=== PATIENT | male | born 1940 | race Caucasian/White ===

== ENCOUNTER 2019-10-20 21:38 | Inpatient (IN) | payer MEDICARE ==
[~2019-10-20] VITALS: Ht 180.3 cm; Wt 83.9 kg
[2019-10-20 22:20] LABS: Source, Urine Clean Catch
[2019-10-20 22:23] LABS: BASOPHILS ABSOLUTE AUTO 0.05 K/mm3 (0.00-0.23); BASOPHILS PERCENT AUTO 0 % (0-2); EOSINOPHILS ABSOLUTE AUTO 0.13 K/mm3 (0.00-0.68); EOSINOPHILS PERCENT AUTO 1 % (0-6); Hematocrit 47.4 % (37.0-53.0); Hemoglobin 15.8 g/dL (13.5-17.5); IMMATURE GRAN ABSOLUTE AUTO 0.08 K/mm3 (0.00-0.10); IMMATURE GRAN PERCENT AUTO 1 % (0-1); LYMPHOCYTES ABSOLUTE AUTO 1.18 K/mm3 (0.84-5.20); LYMPHOCYTES PERCENT AUTO 8 % (21-46); MONOCYTES ABSOLUTE AUTO 1.45 K/mm3 (0.16-1.47); MONOCYTES PERCENT AUTO 9 % (4-13); Mean Corpuscular HGB 33.5 pg (26.0-34.0); Mean Corpuscular HGB Conc 33.3 g/dL (31.5-36.5); Mean Corpuscular Volume 100 fL (80-100); Mean Platelet Volume 10.1 fL (9.1-12.4); NEUTROPHILS ABSOLUTE AUTO 12.61 K/mm3 (1.96-9.15); NEUTROPHILS PERCENT AUTO 81 % (41-73); Platelet Count 193 K/mm3 (150-400); RDW Coefficient Variation 13.2 % (11.7-14.2); RDW Standard Deviation 48.7 fL (35.1-46.3); Red Blood Cell Count 4.72 M/mm3 (4.30-5.90)
[2019-10-20 22:29] LABS: Bilirubin, Urine Neg (Neg); Blood, Urine 4+ (Neg); Glucose Qualitative, Urine Neg (Neg); Ketones, Urine 2+ (Neg); Leukocyte Esterase, Urine 1+ (Neg); Nitrite, Urine Neg (Neg); Protein, Urine 1+ (Neg); Urobilinogen, Urine 2+ (Normal); pH, Urine 6.5 (5.0-8.0)
[2019-10-20 22:38] LABS: Alanine Aminotransfer (ALT/SGP 17 U/L (12-78); Albumin, Blood 2.9 g/dL (3.4-5.0); Albumin/Globulin Ratio 0.7 (0.8-1.8); Alk Phos 109 U/L (50-136); Anion Gap 6 mmol/L (6-16); Aspartate Aminotrans (AST/SGOT 14 U/L (12-37); Bilirubin, Total 0.5 mg/dL (0.1-1.0); Blood Urea Nitrogen 18 mg/dL (8-24); Bun/Creatinine Ratio 20.3 (12.0-20.0); CO2, Blood 29 mmol/L (21-32); Calcium, Blood 8.6 mg/dL (8.5-10.1); Chloride, Blood 107 mmol/L (98-108); Creatinine, Blood 0.89 mg/dL (0.60-1.20); Globulin, Blood 3.9 g/dL (2.2-4.0); Glomerular Filtration Rate >60 (60-); Glucose, Blood 106 mg/dL (70-99); Potassium, Blood 3.9 mmol/L (3.5-5.5); Sodium, Blood 142 mmol/L (136-145); Total Protein, Blood 6.8 g/dL (6.4-8.2); Troponin I <0.015 ng/mL (0.000-0.040)
[2019-10-20 22:53] LABS: Magnesium, Blood 1.8 mg/dL (1.6-2.4)
[2019-10-20 23:19] LABS: Appearance, Urine Clear (Clear); Color, Urine Yellow (P-Yellow)
[2019-10-20 23:20] LABS: Bacteria Rare /hpf; Mucus Light (0-Heavy); Red Blood Cells, Urine 50-100 /hpf (0-2); Squamous Epithelial Cells Rare /hpf (Few)
[2019-10-20 23:59] LABS: Influenza A Negative (NEGATIVE); Influenza B Negative (NEGATIVE)
[2019-10-21 01:38] LABS: Adenovirus Not Detected (NOT DETECT); Bordetella pertussis Not Detected (NOT DETECT); Chlamydophila pneumoniae Not Detected (NOT DETECT); Coronavirus 229E Not Detected (NOT DETECT); Coronavirus HKU1 Not Detected (NOT DETECT); Coronavirus NL63 Not Detected (NOT DETECT); Coronavirus OC43 Not Detected (NOT DETECT); Human Metapneumovirus Not Detected (NOT DETECT); Human Rhinovirus/Enterovirus Not Detected (NOT DETECT); Influenza A/2009-H1 Not Detected (NOT DETECT); Influenza A/H1 Not Detected (NOT DETECT); Influenza A/H3 Not Detected (NOT DETECT); Influenza B Not Detected (NOT DETECT); Mycoplasma pneumoniae Not Detected (NOT DETECT); Parainfluenza Virus 1 Not Detected (NOT DETECT); Parainfluenza Virus 2 Not Detected (NOT DETECT); Parainfluenza Virus 3 Not Detected (NOT DETECT); Parainfluenza Virus 4 Not Detected (NOT DETECT); Respiratory Syncytial Virus Not Detected (NOT DETECT)
--- NOTE | 2019-10-21 08:17 | NUR ---
SUMMARY PT ARRIVED TO FLOOR IN NO DISTRESS. PT HAD NO SOB NOTED. PT IS AOX3 IS CONFUSED TO YEAR AND WHO THE PRESIDENT IS. PT IS ON 2LPM NC. PT DID HAVE A COMPLAINT OF LOW BACK PAIN THAT IMPROVED WITH REPOSITIONING OF BED. REPORT GIVEN TO DAY RN.
--- NOTE | 2019-10-21 15:42 | NUR ---
ADVISED ATTEMPTING TO GET LIST OF MEDS FROM AND WILL LET HIM KNOW WHEN I GET THEM IN. IS CURRENTLY AT [facility] AND WOULD LIKE CALL BACK LATER. JOSE [phone]
--- NOTE | 2019-10-21 16:50 | NUR ---
COMES IN AND SAYS SHE WILL CALL BACK WITH MEDS
--- NOTE | 2019-10-21 17:12 | NUR ---
ALERT AT BEGINNING OF SHIFT AND END TO ; SELF, FAMILY AND IS ABLE TO SAY IN HOSPITAL IN [facility]. COULD NOT TELL ME HIS WIFES NAME OF JUAN JOSÉ, BUT SAID "YOLA". COULD NOT TELL ME THAT WAS A NICKNAME, BUT DIL SAID IT WAS. HX RECENT STROKE W/LEFT SIDED DEFICIT. BILATERAL HAND TREMORS. N/T TO BILATERAL FEET. PLACED ON OXYGEN AT ONE LPM VIA N/C FOR SATS 92-93% WAS AT 90% ON R.A. HAS YEAST TYPE AREA TO ABD FOLD RT SIDE W/NYSTATIN POWDER ORDERED. PATIENT IS VERY SLOW TO RESPOND. UNLABORED RESPIRATIONS. DENIES ANY PAIN OR DISCOMFORT. IS ABLE TO USE CALL LIGHT WHICH IS REVIEWED EVERY TIME IN ROOM AND PLACED ON PATIENT CHEST. TM
[2019-10-21] MEDS ORDERED: CARV3.125 PO (17:26)
[2019-10-21] MEDS ORDERED: CLOP75 PO (17:26)
[2019-10-21] MEDS ORDERED: SULF500 PO (17:28)
--- NOTE | 2019-10-21 17:29 | NUR ---
LEFT MESSAGE ON VOICE MAIL MEDS HAVE BEEN RECONCILLED
--- NOTE | 2019-10-22 07:27 | NUR ---
10/22/19 0620 Awakened pt to repositIon and change incontinence brief. Denies any pain. TWO PERSON ASSIST WITH CARE PATIENT DOES NOT HELP WITH CARE. VITALS STABLE. DROPLET ISOLATION MAINTAINED. SKIN CARE GIVEN WITH BRIEF CHANGES--SEE MAR FOR POWDER USED.
[2019-10-22 09:18] LABS: BASOPHILS ABSOLUTE AUTO 0.03 K/mm3 (0.00-0.23); BASOPHILS PERCENT AUTO 0 % (0-2); EOSINOPHILS PERCENT AUTO 1 % (0-6); Hematocrit 46.1 % (37.0-53.0); Hemoglobin 15.1 g/dL (13.5-17.5); IMMATURE GRAN ABSOLUTE AUTO 0.08 K/mm3 (0.00-0.10); IMMATURE GRAN PERCENT AUTO 1 % (0-1); LYMPHOCYTES ABSOLUTE AUTO 0.93 K/mm3 (0.84-5.20); LYMPHOCYTES PERCENT AUTO 7 % (21-46); MONOCYTES ABSOLUTE AUTO 0.82 K/mm3 (0.16-1.47); MONOCYTES PERCENT AUTO 6 % (4-13); Mean Corpuscular HGB 32.8 pg (26.0-34.0); Mean Corpuscular HGB Conc 32.8 g/dL (31.5-36.5); Mean Corpuscular Volume 100 fL (80-100); Mean Platelet Volume 9.9 fL (9.1-12.4); NEUTROPHILS ABSOLUTE AUTO 12.29 K/mm3 (1.96-9.15); NEUTROPHILS PERCENT AUTO 86 % (41-73); Platelet Count 176 K/mm3 (150-400); RDW Standard Deviation 47.8 fL (35.1-46.3); White Blood Cell Count 14.25 K/mm3 (4.00-11.30)
[2019-10-22 09:38] LABS: Anion Gap 2 mmol/L (6-16); Blood Urea Nitrogen 13 mg/dL (8-24); Bun/Creatinine Ratio 20.5 (12.0-20.0); CO2, Blood 32 mmol/L (21-32); Calcium, Blood 8.6 mg/dL (8.5-10.1); Chloride, Blood 108 mmol/L (98-108); Creatinine, Blood 0.63 mg/dL (0.60-1.20); Glomerular Filtration Rate >60 (60-); Glucose, Blood 124 mg/dL (70-99); Potassium, Blood 4.1 mmol/L (3.5-5.5); Sodium, Blood 142 mmol/L (136-145)
--- NOTE | 2019-10-22 17:51 | NUR ---
NO ACUTE CHANGES NOTED. PATIENT REMAINS CONFUSED AND SLOW TO RESPOND WHEN TALKING TO HIM. PATIENT DOESN'T COMPLAINT OF ANY SHORTNESS OF BREATH BUT AGAIN DOESN'T VERBALIZE WELL. PATIEN O2 SATS ARE IN THE MID 90'S ON 2 LITERS OXYGEN. PATIENT IS INCONTENENT OF BOTH BOWEL AND BLADDER AT THIS TIME WHICH HIS STATES IS NOT HIS NORMAL. HE IS USUALLY ALERT AND INDEPENDENTLY AMBULATORY AT HOME. ORAL AND NASAL SAMPLES SENT OUT FOR TESTING TO RULE OUT COVID-19. NO OTHER ISSUES NOTED AT THIS TIME. WILL CONTINUE TO MONITOR FOR CHANGES.
[2019-10-22 19:18] LABS: Test Name COVID-19
--- NOTE | 2019-10-22 20:00 | NUR ---
2000-ERICK HAS A VERY FLAT EFFECT AND WITHDRAWN FROM STAFF. HE ANSWERS TO HIS NAME BUT WOULD ONLY A FEW OF THE QUESTIONS ASKED. AND WHEN HE DOES IT IS ONLY BY ONE WORD. HE DOES NOT FOLLOW DIRECTIONS ALL THE TIME ONLY WHEN IT SEEMS I GOT HIS ATTENTION. DURING MY WHOLE ASSESSMENT AND ATTENDS CHANGE IS APPEARED VERY UNRESPONSIVE, BUT WAS AWAKE AND STARING AT THE TV. WHEN I DID GET HIM TO MDM SR THEY WERE BARLY A SQEEZE LIKE HE DID NOT WANT TO DO IT. RIGHT WAS STRONGER THEN LEFT. HIS SMILE WAS NORMAL. DORSAL FLEXION AND EXTENTION WERE SAME THE HAND. EVEN THE RECEIVING CLERK COULD NOT GET HIM TO RESPOND. LUNG SOUNDS DIMINISHED WITH MOIST COUGH. NO SPUTUM NOTED. DID NOT EAT MUCH OF HIS MEAL. WHEN ASKED HE DID NOT RESPOND. WILL CONTINUE TO MONITOR AND CHECK CHART TO SEE HIS THIS IS HIS NORM.
--- NOTE | 2019-10-22 21:52 | NUR ---
2151- STOPPED BY, STATES SHE WAS WORRIED HE DID NOT SEEM HIMSELF TODAY. SHE REPORTS THAT HE IS NORMALLY MORE TALKATIVE AND HE BARELY RESPONDED TO HER. IT WORRIED HER ENOUGH THAT SHE CAME BACK IN TO SEE HIM. WHEN SHE CAME OUT OF THE ROOM, SHE SAID HE REPONDED TO HER BETTER. SHE THINKS HE IS SCARED SOMEONE MENTIONED ABOUT THE CORNAVIRUS TO HIM. SHE THINKS HIM NOT RESPONDING IS RELATED TO THAT. SHE SAID WHEN SHE MENTIONED IT TO HIM HE APPEARED LIKE HE WAS GOING TO START TO CRY. TOLD HER WILL WATCH HIM ALL THE VITALS ARE GOOD, IF THERE IS CHANGES WE WILL LET HER KNOW.
--- NOTE | 2019-10-23 05:25 | NUR ---
SHIFT SUMMARY: ERICK HAS BEEN VERY WITHDRAWN AND FLAT EFFECT. HIS RESPONSES ARE LIMITED WITH ALOT OF EFFORT FROM STAFF. HE DOES NOT FOLLOW DIRECTION ALL THE TIME. HE JUST STARES OFF AT THE TV, BUT KNOWS WE ARE TALKING TO HIM. HE APPEARS SCARED AND DOWN WITH WHAT IS GOING ON WITH HIM. THINKS THIS WELL. VS HAVE ALL BEEN STABLE. NEURO CHECKS APPEAR TO BE WITH IN HIS NORM EXCEPT OF HIS RESPONSES. HIS APPETITE IS POOR, DID NOT EAT MUCH OF ANYTHING FOR DINNER. DID GET HIM TO TAKE IN APPLESAUCE. BUT DID NOT WANT ANYTHING TO DRINK. HE CONTINUES TO BE INCONTIENT WITH LARGE AMOUNTS OF OUTPUT. LUNG SOUNDS ARE DIMINISHED WITH THE LIMITED AIR MOVMENT FROM HIM NOT TAKING A DEEP BREATH. COUGH IS MOIST BUT NON-PRODUCTIVE. HE MOSTLY LAID IN BED STARING AT THE TV NOT SPEAKING, UNTIL HE FELL ASLEEP. ATTENDS CHANGED PRN. IV REMAINED PATENT. NO OTHER CHANGES TO REPORT THIS SHIFT.
[2019-10-23 07:17] LABS: BASOPHILS ABSOLUTE AUTO 0.04 K/mm3 (0.00-0.23); BASOPHILS PERCENT AUTO 0 % (0-2); EOSINOPHILS ABSOLUTE AUTO 0.15 K/mm3 (0.00-0.68); EOSINOPHILS PERCENT AUTO 1 % (0-6); Hematocrit 46.3 % (37.0-53.0); Hemoglobin 15.1 g/dL (13.5-17.5); IMMATURE GRAN ABSOLUTE AUTO 0.09 K/mm3 (0.00-0.10); IMMATURE GRAN PERCENT AUTO 1 % (0-1); LYMPHOCYTES ABSOLUTE AUTO 0.97 K/mm3 (0.84-5.20); LYMPHOCYTES PERCENT AUTO 7 % (21-46); MONOCYTES ABSOLUTE AUTO 1.19 K/mm3 (0.16-1.47); MONOCYTES PERCENT AUTO 9 % (4-13); Mean Corpuscular HGB 32.4 pg (26.0-34.0); Mean Corpuscular HGB Conc 32.6 g/dL (31.5-36.5); Mean Corpuscular Volume 99 fL (80-100); Mean Platelet Volume 9.9 fL (9.1-12.4); NEUTROPHILS ABSOLUTE AUTO 10.61 K/mm3 (1.96-9.15); NEUTROPHILS PERCENT AUTO 81 % (41-73); Platelet Count 185 K/mm3 (150-400); RDW Standard Deviation 47.8 fL (35.1-46.3); Red Blood Cell Count 4.66 M/mm3 (4.30-5.90); White Blood Cell Count 13.05 K/mm3 (4.00-11.30)
[2019-10-23 07:38] LABS: Anion Gap 6 mmol/L (6-16); Blood Urea Nitrogen 14 mg/dL (8-24); Bun/Creatinine Ratio 21.5 (12.0-20.0); CO2, Blood 30 mmol/L (21-32); Calcium, Blood 8.6 mg/dL (8.5-10.1); Chloride, Blood 104 mmol/L (98-108); Creatinine, Blood 0.65 mg/dL (0.60-1.20); Glomerular Filtration Rate >60 (60-); Glucose, Blood 88 mg/dL (70-99); Potassium, Blood 3.7 mmol/L (3.5-5.5); Sodium, Blood 140 mmol/L (136-145)
[2019-10-23] MEDS ORDERED: ACET325 PO (09:47)
[2019-10-23] MEDS ORDERED: Pedi-Dri 100,0060 GM TOP (09:48)
[2019-10-23] MEDS ORDERED: AZIT500 PO (09:48)
[2019-10-23] MEDS ORDERED: CEFP200 PO (09:48)
[2019-10-23] MEDS ORDERED: ONDA4ODT MM (09:48)
[2019-10-23] MEDS ORDERED: Florastor250 MG PO (09:49)
--- NOTE | 2019-10-23 10:42 | NUR ---
Pt slow and fatigued and minimally responsive. respirations elevated and deep. pt fights when we try to open eyes. at bedisdie pt slow to repond to stimulus. Physician at bedside. is concerned that he is declining. she was soncerned that if he was passing his pacemanker would keep his heart beating. review of pacemaker and hospice if the time comes. pt was supposed to see doctor lisa yesterday. She is going to speak with him about a plan of care. Goal is to get him home with home health. gave our number will help with plan of care. displaying home care specialist stress. theraputic time with her.
--- NOTE | 2019-10-23 10:45 | NUR ---
SPOKE WITH DR JEWELL AND PALLIATIVE CARE RN MEENU REGARDING PT STATUS THIS AM. PT NOT FOLLOWING DIRECTION FOR ME AND WOULD OPEN EYES FOR A SHORT PERIOD OF TIME WHEN SPOKE TO BUT WOULD NOT VERBALLY RESPOND. UNABLE TO ASSESS FULL NEUROS DO TO NOT FOLLOWING COMMAND BUT DID NOT PT USE ARMS TO GRAB WHEN BEING REPOSITIONED. WHEN ATTEMPTING TO GIVE MEDICATION VIA APPLE SAUCE WITH WOULD NOT SWALLOW AND SAT WITH THE PILL IN HIS MOUTH AND REQUIRED SUCTIONING TO REMOVE. PER PT IS ABLE TO AMBULATE AND BASELINE. SPOUSE REPORTS PT DID NOT EAT YESTERDAY WELL. PER DR JEWELL START ON LR AT 75ML/HR, CHANGE AZITHROMYCIN TO IV DUE TO NOT TAKING THIS AM. HEAD CT WITHOUT CONTRAST ORDERED WELL. SPOUSE REPORTS SHE FEELS THOUGH PT MAY BE DOING THIS ON PURPOSE. WILL CONT TO MONITOR.
--- NOTE | 2019-10-23 17:00 | NUR ---
PT TO IMAGING FOR HEAD CT.
--- NOTE | 2019-10-23 17:26 | NUR ---
SHIFT SUMMARY- PT HAS BEEN NONVERBAL AND NONRESPONSIVE MOST OF THE SHIFT. PT DOES OPEN EYES AT TIMES AND APPEARS TO RESPOND BETTER TO MALE VOICES. PT WITH GENERALIZED WEAKNESS AND DECONDITIONING, SOME STIFFNESS NOTED WELL. TREMORS NOTED, SPOUSE REPORTS THESE ARE CHRONIC. PT DOES NOT FOLLOW DIRECTIONS MOST OF THE TIME AND WOULD NOT SWALLOW MEDICATIONS THIS AM REQUIRING THEM TO BE SUCTIONED OUT. HEAD CT COMPLETED. LS DIMINISHED WITH SOME COARSENESS NOTED, ON 2L N/C. MOIST NPC, SUCTION AT BEDSIDE. HRR. INCONT OF URINE. PT STARTED ON IVF. 1+ BLE EDEMA PRESENT. PT CONT TO NOT EAT OR DRINK THIS SHIFT. NO OTHER ACUTE CHANGES THIS SHIFT.
--- NOTE | 2019-10-23 17:42 | NUR ---
PT SPOUSE IN TO SEE PT THIS EVENING. UPDATE GIVEN. PER SPOUSE SHE BELIEVES THAT PT IS SCARED DUE TO BEING TEST FOR CORNOVIRUS. SHE REPORTS SINCE THEY NOTIFIED HIM OF THIS HE HAS SHUT DOWN. SHE ALSO REPORTS THE LAST TIME PT DID THIS HE WENT BACK TO HIS SELF ONCE SHE GOT PT HOME.
--- NOTE | 2019-10-23 20:00 | NUR ---
2000-ASSUMED CARE OF ERICK. ERICK IS NON-RESPONSIVE TO STAFF. HE WILL SLIGHTLY OPEN HIS EYES, BUT WILL NOT RESPOND TO QUESTIONS OR DIRECTIONS. HE IS NON-VERBAL. HE WOULD NOT EVEN MOVE WHEN ASKED. BUT WHEN WE GO TO TURN HIM HE WILL GRAB THE SIDE BAR AND HOLD HIMSELF UP, THEN HE WILL OPEN HIS EYES UP TILL I LOOK AT HIM AND HE CLOSES THEM. CHANGED ATTENDS, PROVIDED PERICARE AND SKIN CARE. LUNG SOUNDS COURSE AND DIMINISHED. COUGH IS STILL MOIST. WILL CONTINUE TO MONITOR.
--- NOTE | 2019-10-24 04:38 | NUR ---
SHIFT SUMMARY: ERICK HAS REMAINED NON-RESPONSIVE MOST OF SHIFT. DISTANCE EDUCATION COORDINATOR DID GET SOME RESPONSE FROM HIM ONCE WHEN CHANGING HIS ATTENDS. HE ASSISTED HER WITH TURNING AND EVEN SAID O-BOY, OPENING HIS EYES. BUT IT APPEARS WHEN WE TRY TO GET HIM TO TALK MORE, HE GOES IMMEDIATLY BACK TO NOT RESPONDING LIKE HE JUST GOT CAUGHT. HAS MENTIONED THAT HE HAS DONE THIS PREVIOUS HOSPITALIZATION, AND WHEN HE DISCHARGES HE IS HIS NORMAL SELF. HE CONTINUES TO BE INCONTINET WITH FREQUENT CHANGES. REPOSITION EVERY 2 HOURS. NO CHANGE IN LUNG SOUNDS OR COUGH. STILL NOT TAKING ANYTHING BY MOUTH FOR US. IV FLUIDS CONTINUE TO INFUSE WITH NO PROBLEM. VS WNL. NO WORD ON RESULTS OF COVID-19 TEST. CONTINUED ISOLATION DROPLET AT THIS TIME. NO OTHER CHANGES TO REPORT.
--- NOTE | 2019-10-24 17:20 | NUR ---
PT CONTINUES TO NOT EAT OR DRINK BUT A SIP AT TIMES. PT IS RESPONDING SLIGHTLY BETTER AND IS ASSISTING WITH REPOSITIONING IN BED AT TIMES AND SAT UP WITH THERAPY AT EDGE OF BED. PT CONT TO TO NOT SPEAK MUCH PT WITH ANSWER YES/NO AT TIMES OR SHAKE HIS HEAD. SPOKE WITH YESTERDAY AND TODAY REGARDING PT CONDITION AND DECONDITIONING. SPOUSE WAS ORIGINALLY CONCERNED ABOUT TAKING PT HOME AND THEN CHANEGD HER MIND AND REPORTED SHE WOULD TAKE PT HOME SHE BELIEVES HE WILL IMPROVE ONCE HOME. PER CASE MANAGEMENT A HOSPITAL BED WAS BEING DELIVERED TO HOUSE AND GURNEY TRANSPORT ARRANGED. GAIT BELT SENT HOME WITH PT. REPORT CALLED TO SPOUSE EARLIER AND PACKET SENT HOME WITH PT. RX FAXED TO PHARMACY. IV X2 DC'D. AWAITING GURNEY TRANSPORT HOME AT THIS TIME.
--- NOTE | 2019-10-24 18:03 | NUR ---
PT DISCHARGED VIA [facility] AT 1800. ATTEMPTED TO CALL SPOUSE X2 TO LET KNOW THAT PT IS ON HIS WAY BUT WENT STRAIGHT TO VOICEMAIL, MESSAGE LEFT.
== END 2019-10-24 18:02 | disposition home health service (06) | DRG 193 ==
LOC: ER 21:38 → MEDS 21:39
PROVIDERS: Emergency Medicine; Family Medicine; Nurse Practitioner Acute Care; ADMIT Internal Medicine
DX: J18.9 Pneumonia, unspecified organism (principal); J96.01 Acute respiratory failure with hypoxia; K51.90 Ulcerative colitis, unspecified, without complications; I25.10 Atherosclerotic heart disease of native coronary artery without angina pectoris; R41.82 Altered mental status, unspecified; Z66 Do not resuscitate; Z95.0 Presence of cardiac pacemaker; Z95.820 Peripheral vascular angioplasty status with implants and grafts; Z95.1 Presence of aortocoronary bypass graft; Z87.891 Personal history of nicotine dependence; Z88.0 Allergy status to penicillin; Z79.899 Other long term (current) drug therapy; Z79.02 Long term (current) use of antithrombotics/antiplatelets
CPT/HCPCS: 0099U; 36415; 51701; 70450; 71045; 71250; 80048; 80053; 81001; 82947; 83605; 83690; 83735; 83880; 84145; 84443; 84484; 85025; 87040; 87086; 87804; 93005; 93010; 94761; 96361; 96365; 96366; 96367; 96372; 96375; 97112; 97162; 97530; 99285-25; A9270; A9270-GY; G0378; J0456; J0696; J1650; J7030; J7050; J7120; U0001

== ENCOUNTER 2019-10-25 21:40 | Inpatient (IN) | payer MEDICARE ==
[~2019-10-25] VITALS: Ht 182.9 cm; Wt 86.5 kg
[~2019-10-25 21:40] MED LIST: ACET325 PO; AZIT500 PO; CARV3.125 PO; CEFP200 PO; CLOP75 PO; Florastor250 MG PO; ONDA4ODT MM; Pedi-Dri 100,0060 GM TOP; SULF500 PO
[2019-10-25 22:05] LABS: Base Excess Venous 9.3 mmol/L; Bicarbonate Venous 29.3 mmol/L (24.0-30.0); PO2 Venous 27.6 mmHg (38-42)
[2019-10-25 22:07] LABS: BASOPHILS ABSOLUTE AUTO 0.05 K/mm3 (0.00-0.23); BASOPHILS PERCENT AUTO 0 % (0-2); EOSINOPHILS PERCENT AUTO 3 % (0-6); Hematocrit 48.7 % (37.0-53.0); Hemoglobin 16.2 g/dL (13.5-17.5); IMMATURE GRAN ABSOLUTE AUTO 0.07 K/mm3 (0.00-0.10); IMMATURE GRAN PERCENT AUTO 1 % (0-1); LYMPHOCYTES ABSOLUTE AUTO 1.32 K/mm3 (0.84-5.20); LYMPHOCYTES PERCENT AUTO 12 % (21-46); MONOCYTES PERCENT AUTO 10 % (4-13); Mean Corpuscular HGB 32.7 pg (26.0-34.0); Mean Corpuscular HGB Conc 33.3 g/dL (31.5-36.5); Mean Corpuscular Volume 98 fL (80-100); Mean Platelet Volume 9.6 fL (9.1-12.4); NEUTROPHILS ABSOLUTE AUTO 8.37 K/mm3 (1.96-9.15); NEUTROPHILS PERCENT AUTO 75 % (41-73); Platelet Count 235 K/mm3 (150-400); RDW Coefficient Variation 12.6 % (11.7-14.2); Red Blood Cell Count 4.95 M/mm3 (4.30-5.90); White Blood Cell Count 11.21 K/mm3 (4.00-11.30)
[2019-10-25 22:26] LABS: Alanine Aminotransfer (ALT/SGP 14 U/L (12-78); Albumin, Blood 2.6 g/dL (3.4-5.0); Albumin/Globulin Ratio 0.6 (0.8-1.8); Alk Phos 90 U/L (50-136); Anion Gap 5 mmol/L (6-16); Aspartate Aminotrans (AST/SGOT 14 U/L (12-37); Bilirubin, Total 0.6 mg/dL (0.1-1.0); Blood Urea Nitrogen 16 mg/dL (8-24); Bun/Creatinine Ratio 28.1 (12.0-20.0); CO2, Blood 32 mmol/L (21-32); Calcium, Blood 8.9 mg/dL (8.5-10.1); Chloride, Blood 105 mmol/L (98-108); Creatinine, Blood 0.57 mg/dL (0.60-1.20); Globulin, Blood 4.2 g/dL (2.2-4.0); Glomerular Filtration Rate >60 (60-); Glucose, Blood 103 mg/dL (70-99); Potassium, Blood 4.3 mmol/L (3.5-5.5); Sodium, Blood 142 mmol/L (136-145); Total Protein, Blood 6.8 g/dL (6.4-8.2); Troponin I <0.015 ng/mL (0.000-0.040)
[2019-10-26 00:28] LABS: PO2 Arterial 81.2 mmHg (80-100); pH Blood Arterial 7.43 (7.35-7.45)
[2019-10-26 03:02] LABS: Alanine Aminotransfer (ALT/SGP 12 U/L (12-78); Albumin, Blood 2.5 g/dL (3.4-5.0); Albumin/Globulin Ratio 0.6 (0.8-1.8); Alk Phos 84 U/L (50-136); Anion Gap 3 mmol/L (6-16); Aspartate Aminotrans (AST/SGOT 11 U/L (12-37); Bilirubin, Total 0.4 mg/dL (0.1-1.0); Blood Urea Nitrogen 17 mg/dL (8-24); Bun/Creatinine Ratio 31.6 (12.0-20.0); CO2, Blood 32 mmol/L (21-32); Calcium, Blood 8.6 mg/dL (8.5-10.1); Chloride, Blood 107 mmol/L (98-108); Creatinine, Blood 0.54 mg/dL (0.60-1.20); Globulin, Blood 3.9 g/dL (2.2-4.0); Glomerular Filtration Rate >60 (60-); Glucose, Blood 99 mg/dL (70-99); Sodium, Blood 142 mmol/L (136-145); Total Protein, Blood 6.4 g/dL (6.4-8.2)
--- NOTE | 2019-10-26 05:27 | NUR ---
PCU ADMIT / SHIFT SUMMARY PT BROUGHT TO PCU RM 02 FROM ER BY JO @ APPROX 0200 W/OUT FAMILY ACCOMPANYING. PT ALERT, EYES OPEN WIDE BUT PT NOT VERBALLY COMMUNICATING. PT NODDED HEAD YES TO CONFIRM PT's NAME. PT GAZING BLANKLY AHEAD WHEN ASKING OTHER ORIENTATION Q's THERE AFTER. PT SHOOK HEAD NO WHEN ASKED IF HAVING ANY PAIN. UNABLE TO OBTAIN FURTHER INFORMATION OR HX FROM PT. BILAT ARM TREMOR NOTED. MONITOR SHOWS NSR W/ OCCASSIONAL PACING. HR 60's-70's. VSS. LUNG SOUNDS DIM T/O. SPO2 > 92% ON 2L NC. HOME O2 USE UNKNOWN. PT NPO W/ INTENT FOR ST EVAL PER MD NOTE. UNABLE TO OBTAIN UA & TOX SCREEN D/T PT INCONTINENT, WEARING ATTENDS. NS GTT INFUSING PER ORDERS. PT IN BED W/ CALL LIGHT IN REACH. BED ALARM ON. WILL CONTINUE TO MONITOR AND PROVIDE CARE UNTIL REPORT OFF TO DAY SHIFT RN.
[2019-10-26 12:58] LABS: Bilirubin, Urine Neg (Neg); Blood, Urine 3+ (Neg); Glucose Qualitative, Urine Neg (Neg); Ketones, Urine 4+ (Neg); Leukocyte Esterase, Urine Neg (Neg); Nitrite, Urine Neg (Neg); Protein, Urine Neg (Neg); Specific Gravity, Urine 1.015 (1.003-1.022); Urobilinogen, Urine NORM (Normal)
[2019-10-26 13:29] LABS: Appearance, Urine Clear (Clear); Color, Urine Yellow (P-Yellow)
[2019-10-26 13:30] LABS: Bacteria Not Seen /hpf; Squamous Epithelial Cells Not Seen /hpf (Few); White Blood Cells, Urine 0-2 /hpf (0-5)
[2019-10-26 13:37] LABS: U Amphetamine Screen Not Detected; U Barbituate Screen Not Detected; U Benzodiazapine Screen Not Detected; U Buprenorphine Screen Not Detected; U Cannabinoids Screen Not Detected; U Cocaine Screen Not Detected; U Methadone Screen Not Detected; U Methamphetamine Screen Not Detected; U Opiates Screen Not Detected; U Oxycodone Screen Not Detected; U Phencyclidine Screen Not Detected; U Propoxyphene Screen Not Detected
--- NOTE | 2019-10-26 14:03 | NUR ---
Spiritual care visit conducted. Patient is resting and daughter Phyllis is bedside. Phyllis tells me about the patient's medical history, about their family and what the plan is going forward. Phyllis explains the spiritual journey of the patient and the family. Phyllis tells me that she is doing well but she is concerned about her mother in that she is overwhelmed by all the details involved in trying to place the patient and hurting over the what is happening to the patient. I listen empathically and provide a calming presence and prayer. Patient opens his eyes for the prayer and Phyllis voices appreciation. I will continue to remain available to patient and family.
--- NOTE | 2019-10-26 19:15 | NUR ---
SHIFT SUMMARY PT REMAINED LETHARIC THROUGHOUT MOST OF THE SHIFT; DID OPEN EYES TO VERBAL STIMULI & TOUCH AT TIMES; UNABLE TO ASSESS ORIENTATION STATUS; PT NOT VERBALLY RESPONSIVE TO QUESTIONS. FAMILY MADE DECISION TO TRANSITION PT TO COMFORT CARE AT THIS TIME. A #16F MEZA CATHETER WAS INSERTED FOR COMFORT. PT CURRENTLY RESTING IN BED IN NO DISTRESS. PT'S DAUGHTER IS AT BEDSIDE. PLAN FOR PT TO BE MOVED TO MEDICAL FLOOR WHEN BED BECOMES AVAILABLE. REPORT GIVEN TO ONCOMING RN.
--- NOTE | 2019-10-26 21:49 | NUR ---
1900: RECEIVED REPORT FROM DAY SHIFT RN. PT LETHARGIC, SPORADICALLY OPENS EYES, NONVERBAL, DOES NOT ANSWER QUESTIONS. DAUGHTER, ELIANE, AT BEDSIDE. HRR, LUNG SOUNDS DIMINISHED AT BASES. MOIST SHALLOW COUGH NOTED. ABDOMEN ROUND, SOFT, NONTENDER, BOWEL TONES NOTED X 4QUADRANTS. SKIN IS PALE. IV SITE W/O RST. BED IN LOW POSITION, CALL DOMINGUEZ WITHIN REACH.
--- NOTE | 2019-10-26 22:39 | NUR ---
REPORT GIVEN TO CAITLYN READ ON MEDICAL UNIT. FAMILY AWARE OF PT BEING TRANSFERRED TO ROOM 354, MEDICAL FLOOR.
--- NOTE | 2019-10-26 23:05 | NUR ---
TRANSFER NOTE: 2250: REPORT GIVEN TO CAITLYN READ, MEDICAL FLOOR, PT'S FAMILY IN ATTENDANCE, PT MEDICATED WITH ROXANOL FOR BACK DISCOMFORT WITH TURNING, PT IS ON COMFORT CARE. MEZA CATHETER DRAININ DARK ADAMA TO PINK URINE. PT TRANSFERRED VIA HOSPITAL BED, BY RN AND CADDY MASTER, WITH FAMILY IN ATTENDENCE.
--- NOTE | 2019-10-27 04:29 | NUR ---
T/F AND SUMMARY: REPORT RECIEVED FROM VAHE BORING MACHINE SET UP OPERATOR JIG AT 2235 AND PT T/F VIA BED TO ROOM 354 AT 2258 W/FAMILY AT BEDSIDE. HE IS ON COMFORT CARE AND HAS BEEN W/O ANY APPARENT S/S DISTRESS. PT WAS PRIMARILY NONRESPONSIVE BUT OPENED EYES BRIEFLY AT TIMES TO VOICE AND IS NONVERBAL W/INABILTY TO SPECIFY NEEDS. MEZA IS PATENT/DRAINING DARK TEA COLORED URINE. GRADUAL REPOSITIONING ATTENDED TO W/PILLOWS PROVIDED FOR SBD PREVENTION. HEEL PROTECTORS APPLIED AND LEGS FLOATED. PARKINSONIAN TREMOR OBSERVED, WORSE FROM BASELINE. SCOPALAMINE PATCH IN PLACE AND IS MANAGING ORAL SECRETIONS. NO PRN MEDS REQUIRED THIS SHIFT. COMFORT CARE CART AND RECLINER PROVIDED TO FAMILY STAYING AT BEDSIDE. NO ACUTE CHANGES. WCTM AND REPORT TO DAY RN.
--- NOTE | 2019-10-27 09:54 | NUR ---
Comfort Care Visit Pt resting in bed upon arrival. Pt is minimaly responsive and is non verbal. Pt briefly opens his eyes. Pt's is a bed side. Answered questions and concerns. Pt appears comfortable with no S/S of distress at this time. Palliative Care will remain available
--- NOTE | 2019-10-27 17:15 | NUR ---
SUMMARY PT RESTING QUIETLY IN BED, WAKES WHEN DISTURBED, FAMILY REMAINS AT THE BEDSIDE, PT MED PER EMAR FOR COMFORT HE IS ON COMFORT CARE, PT REMAINS NON VERBAL, WILL CONT TO MONITOR
--- NOTE | 2019-10-28 02:27 | NUR ---
PT'S BREATHING MORE LABORED. PT HAS LARGE AMOUNTS OF SECRETIONS THAT PT IS UNABLE TO COUGH UP. TURNED PT TO LEFT SIDE. PT WAS ABLE TO COUGH ENOUGH FOR ME TO DEEP SUCTION OUT A MODERATE AMOUNT OF SPUTUM. PT BREATHING EASIER. STILL HAS SOME GURGLING BUT MUCH IMPROVED. PT'S SON AT BEDSIDE. PT APPEARING COMFORTABLE AT THIS TIME.
--- NOTE | 2019-10-28 06:02 | NUR ---
SHIFT SUMMARY PT MOSTLY UNRESPONSIVE THIS EVENING. EVEN WITH TURNING PT WOULD NOT OPEN EYES. PT DID GRIMACE AND MOAN WITH ORAL CARE AND SUCTIONING. PT DID REQUIRE A GOOD AMOUNT OF SUCTIONING AT ONE POINT IN THE SHIFT. SEE PREVIOUS NOTE. ATROPINE DROPS GIVEN AND SCOPOLAMINE PATCH ON AND CONTINUED TO HAVE A LOT SECRETIONS. SUCTIONING EFFECTIVE. 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 INTERMITTENTLY PT WOULD HAVE MORE SEVERE TREMORS. MEDICATED W/ ATIVAN NEEDED WHICH WORKED WELL NOT ONLY TO HELP RELAX PT BUT ALSO FOR TREMORS WELL. PT ALSO GIVEN ROXANOL X 2 THIS EVENING FOR FACIAL GRIMACING. FAMILY REPORTED THAT PT HAS A HX OF CHRONIC BACK PAIN. MEZA CATHETER IN PLACE. PATENT AND DRAINING DARK ADAMA URINE. LOW OUTPUT. SOME DISCHARGE FROM CATHETER INSERTION SITE. CATHETER CARE DONE. FAMILY AT BEDSIDE THROUGHOUT THE NIGHT. PT RESTING IN BED. APPEARS COMFORTABLE AT THIS TIME. WILL CONTINUE TO MONITOR.
--- NOTE | 2019-10-28 14:00 | NUR ---
Comfort Care Visit Pt resting in bed with his eyes closed. Pt appears comfortable with no S/S of distress at this time. Pt's Rey is at bedside. Listened as Rey reports her inability to care for Pt any longer. Her goal is to have Pt placed in higher level of care with hospice. No other concerns reported at this time. Palliative Care will remain available.
--- NOTE | 2019-10-28 17:19 | NUR ---
SUMMARY PT RESTING QUIETLY IN BED, FAMILY AT THE BEDSIDE T/O THE DAY, PT ON COMFORT CARE, PT MED PER EMAR FOR COMFORT, FREQUENT ORAL CARE AND SUCTIONING IS REQUIRED, PT IS NON VERBAL, APPEARS COMFORTABLE, WILL CONT TO MONITOR
--- NOTE | 2019-10-29 04:39 | NUR ---
SHIFT SUMMARY PT REMAINED UNRESPONSIVE. REQUIRED SUCTIONING INTERMITTENTLY THROUGHOUT THE NIGHT. MEDICATED NEEDED FOR COMFORT. FAMILY AT BEDSIDE THROUGHOUT THE NIGHT. NO ACUTE CHANGES THIS EVENING. WILL CONTINUE TO MONITOR.
--- NOTE | 2019-10-29 11:45 | NUR ---
Comfort care visit Met with Raquel's and dtr at bedside. He is currently unresponsive, breathing shallow but evenly. Family reports he looks comfortable and is very happy with the care he is receiving. [facility]. Pt's dtr reports that pt's other dtr who is a GROUP THERAPIST is coming on Tuesday and they will plan to take him home on hospice on Tuesday if he doesn't pass away before that time. They have no questions at the time of my visit. PC will continue to follow as needed.
--- NOTE | 2019-10-29 16:09 | NUR ---
PT BATHED PT GIVEN BED BATH. SKIN DRYED & POWDERED. PT REPOSITIONED. ORAL CARE COMPLETED. PT MEDICATED FOR SECRETIONS & PAIN.
--- NOTE | 2019-10-29 17:16 | NUR ---
SHIFT SUMMARY PT RESTING IN BED, SURROUNDED BY FAMILY. NO PHYSICAL SIGNS OF DISCOMFORT. PT BATHED THIS SHIFT. ORAL CARE COMPLETED BY STAFF AND FAMILY. REPOSITIONS COMPLETED ALLOWED BY FAMILY. PT WARM TO TOUCH. SHEET ONLY PLACED OVER PT TO ALLOW FOR COOLING.
--- NOTE | 2019-10-29 21:22 | NUR ---
PATIENT ALSEEP. FAMILY REPORTED THAT HE SEEMED IN PAIN HIS BROW WAS FURROWED. PATIENT MEDICATED FOR PAIN PER EMAR. HIS BREATHING IS EVEN AND UNLABORED AND SOUNDS IF THERE ARE RESPIRATORY SECRETIONS, BUT THEY DO NOT SEEM TO BE CAUSING HIM ANY DISTRESS. FAMILY IS PLEASED WITH PATIENT CARE OF THIS TIME.
--- NOTE | 2019-10-29 22:36 | NUR ---
PATIENT APPEARS MORE RELAXED IN HIS FACE A RESULT OF HIS PAIN MEDICATION. RESTING COMFORTABLY WITH FAMILY AT BEDSIDE. ARMS ARE MOTTLING UP TO HIS MID UPPER ARM NOW. BREATHING STARTING TO SLOW BUT STILL UNLABORED.
--- NOTE | 2019-10-30 01:59 | NUR ---
PATIENT'S FAMILY AT BEDSIDE. PATIENT SEEMS TO BE SLEEPING COMFORTABLY. BREATHING RATE HAD INCREASED AND PATIENT HAD A SLIGHT GRIMACE, MEDICATED PER EMAR FOR PAIN AT 0037. IT SEEMS TO HAVE BEEN EFFECTIVE.
--- NOTE | 2019-10-30 03:30 | NUR ---
PATIENT SLEEPING COMFORTABLY. DOES NOT APPEAR TO BE IN PAIN. BREATHING AT A STEADY RATE. FAMILY AT BEDSIDE.
--- NOTE | 2019-10-30 04:20 | NUR ---
PATIENT AT 0405. FAMILY PRESENT IN THE ROOM. NOTIFIED CHARGE NURSE THAT THEY WANT HIM TO BE PICKED UP BY [facility] IN [place]. DR ALMEIDA NOTIFIED AT 0422.
--- NOTE | 2019-10-30 05:52 | NUR ---
IV, MEDICATION PATCH, AND CATHETER REMOVED, PATIENT PLACED IN A YELLOW GOWN. SHOW HOST OR HOSTESS FROM [facility], MISHEL MARCELINO, COLLECTED PATIENT AT 0434.
== END 2019-10-30 04:05 | DRG 64 ==
LOC: ER 21:40 → PCU 10-26 01:13 → MEDS 10-26 22:58
PROVIDERS: Emergency Medicine; Internal Medicine; ADMIT Hospitalist
DX: I63.9 Cerebral infarction, unspecified (principal); J18.9 Pneumonia, unspecified organism; G92 Toxic encephalopathy; F02.80 Dementia in other diseases classified elsewhere, unspecified severity, without behavioral disturbance, psychotic disturbance, mood disturbance, and anxiety; G20 Parkinson's disease; Z95.1 Presence of aortocoronary bypass graft; Z66 Do not resuscitate; Z86.73 Personal history of transient ischemic attack (TIA), and cerebral infarction without residual deficits; I25.10 Atherosclerotic heart disease of native coronary artery without angina pectoris; Z95.0 Presence of cardiac pacemaker; Z51.5 Encounter for palliative care; Z88.0 Allergy status to penicillin; R29.810 Facial weakness; Z87.891 Personal history of nicotine dependence
CPT/HCPCS: 36415; 36600; 70450; 71045; 80053; 81001; 82140; 82803; 83880; 84145; 84484; 85025; 93005; 93010; 94640; 96361; 96365; 99285-25; J0456; J0696; J2060; J7030; J7050